=== PATIENT | female | born 1965 | race Caucasian/White ===

== ENCOUNTER 2021-05-27 10:12 | Emergency (ER) | payer OTHER ==
[~2021-05-27] VITALS: Ht 167.6 cm; Wt 87.1 kg
[~2021-05-27 10:12] MED LIST: ASPIRIN81 MG PO; ELECTROLYTE PO; GARLIC1000 MG PO; LIPITOR40 MG PO; VITAMIN C500 M4 PO
== END 2021-05-27 10:55 | disposition home or self-care (01) ==
LOC: ED 10:12
DX: S16.1XXA Strain of muscle, fascia and tendon at neck level, initial encounter (principal); Z79.899 Other long term (current) drug therapy; Z79.82 Long term (current) use of aspirin; Z88.0 Allergy status to penicillin; W00.0XXA Fall on same level due to ice and snow, initial encounter
CPT/HCPCS: 99283

== ENCOUNTER 2023-10-28 13:18 | Emergency (ER) | payer OTHER ==
[~2023-10-28] VITALS: Ht 167.6 cm; Wt 93.0 kg
[2023-10-28] MEDS ORDERED: AMOX TR-K CLV1 EAC1 PO (13:53)
[2023-10-28 14:12] VITALS: BP 177/108
== END 2023-10-28 14:14 | disposition home or self-care (01) ==
LOC: ED 13:18
DX: S81.852A Open bite, left lower leg, initial encounter (principal); W55.01XA Bitten by cat, initial encounter; Z88.0 Allergy status to penicillin
CPT/HCPCS: 99283